=== PATIENT | male | born 1960 | race Hispanic/Latino ===

== ENCOUNTER 2017-07-04 11:43 | Day surgery (SDC) | payer BC ==
[2017-06-26 11:25] VITALS: BMI 37.5
[2017-07-04] MEDS ORDERED: Propofol 10 mg/ml Inj (20 ML) ONE (14:32)
[2017-07-04] MEDS ORDERED: Lidocaine 1% Inj (20ml) ONE (14:35)
[2017-07-04] MEDS ORDERED: Etomidate 20 mg/10ml Inj IV ONE (14:35)
[2017-07-04] MEDS ORDERED: Sodium Chloride 0.9% 1,000 ML IV SCH (15:30)
[2017-07-04 16:11] VITALS: BP 137/77; PULSE 61; RESP 18; TEMP 98.1; O2SAT 97
== END 2017-07-04 17:14 | disposition home or self-care (01) ==
LOC: ENDO 11:43
PROVIDERS: ATTEND Internal Medicine Gastroenterology
DX: K25.9 Gastric ulcer, unspecified as acute or chronic, without hemorrhage or perforation (principal); K63.5 Polyp of colon; K29.50 Unspecified chronic gastritis without bleeding; K21.9 Gastro-esophageal reflux disease without esophagitis; K62.5 Hemorrhage of anus and rectum; K64.8 Other hemorrhoids
CPT/HCPCS: 43239; 45385; 88305; 88342; J2704; J3010; J7040 ×2